=== PATIENT | female | born 1970 | race Caucasian/White ===

== ENCOUNTER 2017-04-19 13:54 | Emergency (ER) | payer OTHER ==
--- NOTE | ~2017-04-19 | CR20 ---
[facility] A Service of [facility] RADIOLOGY TEXT RESULTS PATIENT: BHAVYA MERCADO LOCATION: SED : 72 UNIT #: [id number] AGE: [address]: ROZ VILLALOBOS SEX: F ORDER DR: [id number] [place] [id number] E MR#: [id number] Acc #: [id number] NAME: BHAVYA MERCADO : 1970 SEX: F STUDY DATE/TIME: 04/19/2017 14:19 UNIT: SED ROOM: STUDY DESCRIPTION: CR Ankle Min 3 Views Lt Attending Physician: Roz Villalobos Ordering Physician: Roz Villalobos Primary Care Physician: No Primary Care Physician MEDICAL IMAGING REPORT This report is preliminary unless electronic signature is present. EXAM Left ankle series dated 04/19/2017. COMPARISON Left foot series dated 04/19/2017. HISTORY Left ankle and foot pain today post trauma. FINDINGS 3 views of the left ankle were obtained. No acute displaced fracture or dislocation is seen. Well corticated bony fragments are noted distal to the medial malleolar tip, one or two. They are also better seen on the ankle images. Adjacent soft tissue swelling is present. The bony fragments have chronic appearance suggestive of old trauma or dystrophic calcification. Correlate clinically. IMPRESSION 1. Small plantar calcaneal spur is seen. 2. There appears to be a lucency in the superomedial aspect of the talar dome. 3. Possible osteochondral defect and bony change in this region is in the differential consideration. 4. Correlate clinically. Depending on the need MRI can be considered on an elective basis. Dictated by... Olaf Maya M.D. THIS IS AN ELECTRONICALLY VERIFIED REPORT Olaf Maya M.D. at 04/22/2017 4:14 PM CPR/rnr [facility] A Service of [facility] RADIOLOGY TEXT RESULTS PATIENT: BHAVYA MERCADO LOCATION: SED : 72 UNIT #: [id number] AGE: [address]: ROZ VILLALOBOS SEX: F ORDER DR: TD: 04/19/2017 22:48 JOB #: [id number] MEDICAL IMAGING REPORT Page 1 of 1
--- NOTE | ~2017-04-19 | CR126 ---
[facility] A Service [facility] RADIOLOGY TEXT RESULTS PATIENT: BHAVYA MERCADO LOCATION: SED : 72 UNIT #: [id number] AGE: [address]: HELADIO CORONA SEX: F ORDER DR: [id number] [place] [id number] E MR#: [id number] Acc #: [id number] NAME: BHAVYA MERCADO : 1970 SEX: F STUDY DATE/TIME: 04/19/2017 14:19 UNIT: SED ROOM: STUDY DESCRIPTION: CR Foot Complete Min 3 View Lt Ordering Physician: [facility] MEDICAL IMAGING REPORT This report is preliminary unless electronic signature is present. EXAM Left foot series dated 04/19/2017. COMPARISON Left ankle series dated 04/19/2017. HISTORY Left ankle and foot pain today post trauma. FINDINGS 3 views of the left foot were obtained. Hallux valgus deformity is noted, chronic. There appears to be some soft tissue prominence adjacent to the fifth metatarsal-phalangeal joint. Correlate with history of swelling. There are well-corticated diffuse bony fragments noted distal to the medial malleolar tip with the largest one measuring 1.1 cm. They appear to be chronic. There appears to be a prominent bony component along the posterior aspect of the talus, superior to the calcaneus. Plantar calcaneal spur is seen. IMPRESSION 1. Well corticated 2-3 bony fragments noted distal to the medial malleolar tip, has a chronic appearance and could be related to old trauma or dystrophic calcification. There is some adjacent soft tissue swelling seen. 2. Small plantar calcaneal spur. 3. Mild soft tissue prominence is noted adjacent to the fifth metatarsal-phalangeal joint without any bony injury. Correlate clinically. 4. Hallux valgus deformity of the great toe. [facility] A Service [facility] RADIOLOGY TEXT RESULTS PATIENT: BHAVYA MERCADO LOCATION: SED : 72 UNIT #: [id number] AGE: [address]: HELADIO CORONA SEX: F ORDER DR: Dictated by... Olaf Maya M.D. THIS IS AN ELECTRONICALLY VERIFIED REPORT Olaf Maya M.D. at 04/22/2017 4:14 PM CPR/pcl TD: 04/19/2017 22:39 JOB #: [id number] MEDICAL IMAGING REPORT Page 1 of 1
[2017-04-19] MEDS ORDERED: APRESOLINE PO (14:00)
[2017-04-19] MEDS ORDERED: COREG PO (14:00)
[2017-04-19] MEDS ORDERED: NORVASC10 MG PO (14:01)
== END 2017-04-19 15:54 | disposition home or self-care (01) ==
LOC: SED 13:54
DX: S93.402A Sprain of unspecified ligament of left ankle, initial encounter (principal); I10 Essential (primary) hypertension; Z88.0 Allergy status to penicillin; X50.1XXA Overexertion from prolonged static or awkward postures, initial encounter; Y92.009 Unspecified place in unspecified non-institutional (private) residence as the place of occurrence of the external cause
CPT/HCPCS: 29515; 73610; 73630; 99283